=== PATIENT | female | born 1960 | race Caucasian/White ===

== ENCOUNTER 2020-09-16 08:53 | Inpatient (IN) | payer MEDICARE, MEDICAID ==
[2020-09-18 11:38] VITALS: BMI 19.0
[2020-09-21 15:58] VITALS: BP 123/84; TEMP 98.1
== END 2020-09-21 17:45 | DRG 417 ==
LOC: SDC 08:53 → SURG B 13:21
PROVIDERS: ADMIT Specialist; ATTEND Specialist
PROC: 0FT44ZZ Resection of Gallbladder, Percutaneous Endoscopic Approach (ICD-10-PCS; principal; 2020-09-16)
PROC: BF121ZZ Fluoroscopy of Gallbladder using Low Osmolar Contrast (ICD-10-PCS; 2020-09-16)
PROC: 0FCC8ZZ Extirpation of Matter from Ampulla of Vater, Via Natural or Artificial Opening Endoscopic (ICD-10-PCS; 2020-09-17)
PROC: BF101ZZ Fluoroscopy of Bile Ducts using Low Osmolar Contrast (ICD-10-PCS; 2020-09-17)
DX: K80.42 Calculus of bile duct with acute cholecystitis without obstruction (principal); G80.0 Spastic quadriplegic cerebral palsy; G93.49 Other encephalopathy; K44.9 Diaphragmatic hernia without obstruction or gangrene; E03.9 Hypothyroidism, unspecified; G40.909 Epilepsy, unspecified, not intractable, without status epilepticus; K21.9 Gastro-esophageal reflux disease without esophagitis; M81.0 Age-related osteoporosis without current pathological fracture; Z88.1 Allergy status to other antibiotic agents; Z88.8 Allergy status to other drugs, medicaments and biological substances; K59.09 Other constipation; F09 Unspecified mental disorder due to known physiological condition
CPT/HCPCS: 36415; 47532; 76000; 80053; 82247; 83690; 85025; 85060; 88304; J0171; J0690; J1100; J1885; J1956; J2405; J2704; J3010; J3480; J7120; Q9961; S0020; S0028